=== PATIENT | male | born 1955 | race Caucasian/White ===

== ENCOUNTER 2016-09-29 18:31 | Emergency (ER) | payer BC ==
[~2016-09-29] VITALS: Ht 177.8 cm; Wt 86.2 kg
--- NOTE | 2016-09-29 18:40 | NUR ---
PT BIB SELF C/O HIGH PT "240/120" WITH HEADACHE. NO NEURO DEFICITS OR VISUAL CHANGES. ALSO REPORTS THAT HE HAS "A COLD". NAD NOTED. RESP EVEN UNLABORED. SKIN WARM NONDIAPHORETIC. IN ER BED 10 ON MONITOR.
[2016-09-29] MEDS ORDERED: hydrALAZINE HCL IV 20 MG VIAL ONE (18:51)
[2016-09-29 18:55] LABS: BASOPHILS % (AUTO) 0.4 % (0.0-2.0); EOSINOPHILS # (AUTO) 0.2 /CMM (0.0-0.7); EOSINOPHILS % (AUTO) 2.1 % (0.0-6.0); HEMATOCRIT 43 % (39-51); HEMOGLOBIN 14.8 g/dL (13.5-17.5); LYMPHOCYTES # (AUTO) 2.5 /CMM (0.8-4.8); LYMPHOCYTES % (AUTO) 31.6 % (20.0-44.0); MEAN CORPUSCULAR HEMOGLOBIN 30 PG (26.0-33.0); MEAN CORPUSCULAR HGB CONC 34 g/dl (31.0-36.0); MEAN CORPUSCULAR VOLUME 88 fL (80-96); MONOCYTES # (AUTO) 0.9 /CMM (0.1-1.30); MONOCYTES % (AUTO) 11.6 % (2.0-12.0); NEUTROPHILS # (AUTO) 4.4 /CMM (1.8-8.9); NEUTROPHILS % (AUTO) 54.3 % (43.0-81.0); PLATELET COUNT (AUTO) 170 /CMM (150-450); RDW COEFFICIENT OF VARIATION 12.1 (11.5-15.0); RED BLOOD CELL COUNT(AUTO) 4.91 MIL/uL (4.5-6.0)
--- NOTE | 2016-09-29 18:56 | NUR ---
PT TRANSPORTED TO CT IN STABLE CONDITION.
[2016-09-29] MEDS ORDERED: hydrALAZINE HCL IV 20 MG VIAL IV ONE (19:00)
[2016-09-29 19:06] LABS: CARBON DIOXIDE 28 mmol/L (21-32); CHLORIDE 105 mmol/L (98-107); CREATININE 1.3 mg/dL (0.6-1.3); GFR 56 mL/min (>60); GLUCOSE 118 mg/dL (74-106); POTASSIUM 3.6 mmol/L (3.5-5.1); SODIUM SERUM 139 mmol/L (136-145); UREA NITROGEN, BLOOD 23 mg/dL (7-18)
[2016-09-29 19:07] LABS: CALCIUM, SERUM 8.8 mg/dL (8.5-10.1)
[2016-09-29 19:12] LABS: INR 0.95 (0.87-1.13); PROTHROMBIN TIME 9.9 SECS (9.5-12.7)
[2016-09-29 19:16] LABS: TROPONIN I < 0.017 ng/mL (0.00-0.056)
--- NOTE | 2016-09-29 20:06 | NUR ---
Patient discharged to home in stable condition. Written and verbal after care instructions given. Patient verbalizes understanding of instruction. IV removed. Catheter intact and site benign. Pressure and 4x4 applied to site. No bleeding noted. AMBULATORY WITH STEADY GAIT.
[2016-09-29 20:08] VITALS: BP 148/90
== END 2016-09-29 20:08 | disposition home or self-care (01) ==
LOC: ER 18:36
DX: I10 Essential (primary) hypertension (principal); R51 Headache; R05 Cough; E03.9 Hypothyroidism, unspecified; R79.1 Abnormal coagulation profile
CPT/HCPCS: 36415; 70450-TC; 71010-TC; 80048-TC; 84484-TC; 85025-TC; 85730-TC; A4606; J0360; Z7610